=== PATIENT | male | born 1990 | race Caucasian/White ===

== ENCOUNTER 2019-07-09 12:04 | Day surgery (SDC) | payer BC ==
[2019-07-09] MEDS ORDERED: PROPOFOL 10 MG/ML VIAL IV ONE (12:05)
[2019-07-09] MEDS ORDERED: LIDOCAINE 2% MDV (20MG/ML) 20ML VIAL IV ONE (12:05)
--- NOTE | 2019-07-10 09:30 | Operative Note ---
OPERATION: COLONOSCOPY with random biopsy and photo. PREOPERATIVE DIAGNOSIS: Chronic diarrhea. POSTOPERATIVE DIAGNOSIS: Normal-appearing ileum and colon, rule out microscopic colitis. PROCEDURE: After informed consent was obtained from the patient, he was placed in the left lateral decubitus position in the endoscopy suite, sedated and monitored by the department of anesthesia. Digital rectal exam was unremarkable. A well-lubricated [id number] colonoscope was inserted into the rectum and advanced to the cecum. Preparation quality was excellent. The cecum, cecal bulb, ileocecal valve, terminal ileum, ascending colon, transverse colon, descending colon, sigmoid colon, and rectum were free of inflammatory changes, mass lesions, or polyps. Forward and J-turn views of the rectum and anorectum were unremarkable. It should be noted random biopsies were obtained from the colon to rule out microscopic colitis. The endoscope was straightened, the rectal ampulla deflated, and the endoscope was removed. RECOMMENDATIONS: We will await the results of tissue histology. At this point, I am suspicious the patient suffers from IBS. Perhaps a trial of an antispasmodic such as Robinul 1 mg 2-3 times daily would be helpful provided no biopsy irregularity is noted. As always, thank you for allowing me to participate in the healthcare of your patients. KRISHNA
== END 2019-07-09 13:36 | disposition home or self-care (01) ==
LOC: HOP 12:04
PROVIDERS: ATTEND Internal Medicine Gastroenterology
DX: K52.9 Noninfective gastroenteritis and colitis, unspecified (principal); R14.0 Abdominal distension (gaseous); K21.9 Gastro-esophageal reflux disease without esophagitis